=== PATIENT | male | born 1950 | race Caucasian/White ===

== ENCOUNTER 2021-05-24 11:08 | Outpatient (CLI) | payer MEDICARE ==
[2021-05-24 13:03] LABS: #Eosinphils 0.2 10x3/uL (0.0-0.5); #Monocytes 0.7 10x3/uL (0.0-1.1); %Basophils 0.4 % (0.0-2.0); %Eosinophils 2.4 % (0.0-6.0); %Lymphocytes 45.4 % (18.0-47.0); %Monocytes 9.5 % (0.0-10.0); Hemoglobin 13.1 g/dL (13.5-17.5); Mean Corpuscular HGB CONC 33.4 g/dL (32.0-36.0); Mean Corpuscular Hemoglobin 31.3 pg (27.0-33.0); Mean Corpuscular Volume 93.6 fl (81.2-95.1); Mean Platelet Volume 9.3 fl (7.4-10.4); Platelet Count 196 10x3/uL (150-450); RBC Distribution Width 12.1 % (11.5-14.5); Red Blood Cell (RBC) Count 4.19 10x6/uL (4.32-5.72)
== END 2021-05-24 11:09 | disposition home or self-care (01) ==
LOC: LABBT 11:08
PROVIDERS: ATTEND Orthopaedic Surgery
DX: Z01.818 Encounter for other preprocedural examination (principal); G56.02 Carpal tunnel syndrome, left upper limb
CPT/HCPCS: 85025; 93005; 93010

== ENCOUNTER 2021-05-27 08:35 | Day surgery (SDC) | payer MEDICARE ==
[2021-05-25 15:09] VITALS: BMI 31.8
[2021-05-27] MEDS ORDERED: Lidocaine 1% PF 5 ML VIAL ONE (09:42)
[2021-05-27] MEDS ORDERED: Dexamethasone 20 MG/5 ML VIAL ONE (09:42)
[2021-05-27] MEDS ORDERED: PROPOFOL 200 MG/20 ML VIAL ONE (09:42)
[2021-05-27] MEDS ORDERED: Ondansetron PF 4 MG/2 ML Vial ONE (09:42)
[2021-05-27] MEDS ORDERED: Fentanyl 100 MCG/2 ML VIAL ONE (09:48)
[2021-05-27] MEDS ORDERED: Midazolam HCl 2 mg/2 ml Vial ONE (09:48)
[2021-05-27] MEDS ORDERED: Lidocaine 1% w/Epinephrine 1:100K 20 ML VIAL ONE (10:10)
== END 2021-05-27 12:57 | disposition home or self-care (01) ==
LOC: SDC 08:35
PROVIDERS: ATTEND Orthopaedic Surgery
PROC: 01N50ZZ Release Median Nerve, Open Approach (ICD-10-PCS; principal; 2021-05-27)
DX: G56.03 Carpal tunnel syndrome, bilateral upper limbs (principal); E11.9 Type 2 diabetes mellitus without complications; I10 Essential (primary) hypertension; M19.90 Unspecified osteoarthritis, unspecified site; D68.51 Activated protein C resistance; E78.00 Pure hypercholesterolemia, unspecified; E78.5 Hyperlipidemia, unspecified; G47.30 Sleep apnea, unspecified; E66.9 Obesity, unspecified; Z68.31 Body mass index [BMI] 31.0-31.9, adult; Z87.891 Personal history of nicotine dependence; Z86.718 Personal history of other venous thrombosis and embolism; Z79.01 Long term (current) use of anticoagulants; Z79.84 Long term (current) use of oral hypoglycemic drugs; Z79.899 Other long term (current) drug therapy; Z98.1 Arthrodesis status; Z85.528 Personal history of other malignant neoplasm of kidney; Z90.5 Acquired absence of kidney; Z98.890 Other specified postprocedural states
CPT/HCPCS: J0690; J1100; J2250; J2405; J2704; J3010

== ENCOUNTER 2021-12-23 13:29 | Outpatient (CLI) | payer MEDICARE | END 2021-12-23 13:30 | disposition home or self-care (01) | LOC: SCSCT 13:29 | PROVIDERS: ATTEND Family Medicine | DX: G43.109 Migraine with aura, not intractable, without status migrainosus (principal) | CPT/HCPCS: 70450 ==